=== PATIENT | female | born 1980 | race Caucasian/White ===

== ENCOUNTER 2021-02-02 10:21 | Emergency (ER) | payer OTHER ==
[~2021-02-02 10:21] MED LIST: AZITHROMYCIN250 MG PO; DICLOFENAC SODI75 MG PO; FOLTANX TABLET1 EACH PO; IBUPROFEN800 MG PO; KLONOPIN1 MG PO; LEVETIRACETAM500 MG PO; NEURONTIN300 MG PO; PREDNISONE 20MG20 MG PO; VENTOLIN (2.5 MG/3 M INH; VIIBRYD40 MG PO
[2021-02-02] MEDS ORDERED: ATIVAN1 M1 PO (11:06)
[2021-02-02] MEDS ORDERED: CLONIDINE HCL0.1 MG PO (11:06)
== END 2021-02-02 11:11 | disposition home or self-care (01) ==
LOC: FER 10:21
DX: F41.9 Anxiety disorder, unspecified (principal); G40.909 Epilepsy, unspecified, not intractable, without status epilepticus; F17.210 Nicotine dependence, cigarettes, uncomplicated; Z88.7 Allergy status to serum and vaccine; Z79.899 Other long term (current) drug therapy
CPT/HCPCS: 99283